=== PATIENT | female | born 2000 | race Caucasian/White ===

== ENCOUNTER 2021-01-23 22:37 | Emergency (ER) | payer MEDICAID ==
[~2021-01-23] VITALS: Ht 157.5 cm; Wt 77.1 kg
[2021-01-23 22:43] VITALS: BP_SYST 132
[2021-01-23] MEDS ORDERED: DIPH25CA83 PO (22:53)
--- NOTE | 2021-01-23 23:56 | NUR ---
Patient to ER bed hw1 to gown for evaluation. Side rails up. Report given to [place].
--- NOTE | 2021-01-24 | NUR ---
PATIENT AAOX4 AND AMBULATORY HAS SWOLLEN LIP PER PATIENT HAS TAKEN BENADRYL TODAY WITH MINOR RELIEF. PER PATIENT SHE HAS BEEN HAVING SWOLLEN EYE ON SUNDAY. CURRENTLY STATING 0/10 ON THE PAIN SCALE. VSS.
--- NOTE | 2021-01-24 01:30 | NUR ---
DR. DE LUNA AT BEDSIDE FOR EVALUATION.
--- NOTE | 2021-01-24 01:42 | NUR ---
Medicated pepcid, prednisone, and benadryl per MD orders. Will cont to monitor and observe for any adverse reaction.
[2021-01-24] MEDS ORDERED: DIPHENHYDRAMINE HCL 50 MG CAPSULE PO ONE (01:45)
[2021-01-24] MEDS ORDERED: predniSONE 20 MG TABLET PO ONE (01:45)
[2021-01-24] MEDS ORDERED: DIPH25CA83 PO (01:45)
[2021-01-24] MEDS ORDERED: EPIN0.3P3 IM (01:45)
[2021-01-24] MEDS ORDERED: FAMOTIDINE 20 MG TABLET PO ONE (01:45)
[2021-01-24] MEDS ORDERED: PRED20TA PO (01:45)
[2021-01-24] MEDS ORDERED: FAMO-132 PO (01:45)
[2021-01-24 01:46] VITALS: BP_SYST 126
--- NOTE | 2021-01-24 01:49 | NUR ---
Patient given written and verbal discharge instructions and verbalizes understanding. ER MD discussed with patient the results and treatment provided. Patient in stable condition. ID arm band removed. Rx of Pepcid, Prednisone, Epi Pen and Benadryl given. Patient educated on pain management and to follow up with PMD. Pain Scale 0. Opportunity for questions provided and answered. Medication side effect fact sheet provided.
== END 2021-01-24 01:49 | disposition home or self-care (01) ==
LOC: SED 22:37
DX: T78.3XXA Angioneurotic edema, initial encounter (principal); Z88.0 Allergy status to penicillin; Z79.899 Other long term (current) drug therapy
CPT/HCPCS: 99284; J7512; Q0163

== ENCOUNTER 2021-03-03 08:04 | Emergency (ER) | payer MEDICAID, SELFPAY ==
[~2021-03-03] VITALS: Ht 157.5 cm; Wt 72.6 kg
[~2021-03-03 08:04] MED LIST: DIPH25CA83 PO; EPIN0.3P3 IM; FAMO-132 PO; PRED20TA PO
[2021-03-03 08:05] VITALS: BP_SYST 115
[2021-03-03] MEDS ORDERED: IBUP-1969 PO (08:59)
== END 2021-03-03 09:12 | disposition left against medical advice (07) ==
LOC: SED 08:04
DX: J02.9 Acute pharyngitis, unspecified (principal); Z20.822 Contact with and (suspected) exposure to COVID-19; Z88.0 Allergy status to penicillin; Z79.899 Other long term (current) drug therapy
CPT/HCPCS: 99282